=== PATIENT | female | born 1990 | race Caucasian/White ===

== ENCOUNTER 2024-09-08 18:28 | Emergency (ER) | payer OTHER, SELFPAY ==
[2024-09-08 18:38] VITALS: BP 152/96
--- NOTE | 2024-09-08 19:21 | ED.GENMED ---
History of Present Illness
General
Chief Complaint: Dizziness
Source: patient
Exam Limitations: none
Time Seen by Provider: 09/08/24 19:08
History of Present Illness
History of Present Illness:
See MDM
Past History
Past History
ED Past Medical History: None
ED Past Surgical History: Appendectomy
Social History
Tobacco: Non-smoker
Alcohol: None
Drug: None
Phy Exam
Physical Exam
Physical Exam:
See MDM
Course
Orders/Labs/Results
Orders:
Orders
09/08/24 18:31
ECG [Electrocardiogram (*1)] Urgent
Reason for Study: Vertigo / Dizzy
09/08/24 18:32
EKG- Treatment ONCE
09/08/24 19:20
Meclizine [Antivert] 25 mg PO NOW STA
Ondansetron Orally Disint [Zofran Odt (Orally Disintegrating)] 4 mg PO NOW STA
09/08/24 20:20
Diazepam [Valium] 2 mg PO NOW STA
Vital Signs
Initial and Last Documented VS:
Initial Vital Signs
Temp Pulse Resp BP Pulse Ox
97.8 F 91 16 152/96 100
09/08/24 18:38 09/08/24 18:38 09/08/24 18:38 09/08/24 18:38 09/08/24 18:38
Last Documented Vital Signs
Temp Pulse Resp BP Pulse Ox
97.8 F 91 16 152/96 98
09/08/24 18:38 09/08/24 18:38 09/08/24 18:38 09/08/24 18:38 09/08/24 20:00
MDM/Problems Addressed
Differential Diagnosis Includes:
HPI and MDM Narrative:
34-year-old female presenting for evaluation of dizziness. Patient states she sees the room spinning. It is intermittent in nature. It occurred suddenly. It is worse with certain head movements. She does acknowledge that this feels very similar
to a prior episode where she was diagnosed with vertigo. On exam, she does have mild horizontal fatigable nystagmus to the right. Positive Leena-Hallpike to the right. No cerebellar signs. TMs clear. Will give meclizine and Zofran and continue to
monitor. Given reproducible dizziness with no neurodeficits, we discussed low yield for CT head. Patient acknowledges and agrees
Physical exam
General: Well appearing and non-toxic
HEENT: protecting airway. Pupils equal reactive. EOMI. Mild fatigable horizontal nystagmus to the right
Neck: appears supple
CV: No evidence of cyanosis
Resp: No accessory muscle use
Abd: Non-distended
Extremities: No deformities
Neuro: alert. Normal finger-nose bilaterally
Psych: Normal affect
Skin: Intact
Problems Addressed including Acute and Chronic Conditions affecting care:
1. Vertigo
Acuity: acute
Prognosis: stable
Details: Exam and symptoms consistent with BPPV. Will give meclizine and continue to monitor
Updates
8:20 PM on reassessment after meclizine, patient feeling much better but still somewhat symptomatic. Will give small dose of Valium
9:20 PM patient feeling much better and feels comfortable going home
Differential Diagnosis (but not limited to): Vertigo, labyrinthitis, M�ni�re's disease
Testing considered: CT head
Drug therapy (if applicable): OTC meds, please see d/c instruction regarding Rx drugs
Amount and/or Complexity of Data Reviewed
Clinical info obtained from: Patient
External data reviewed: N/A
Labs I independently reviewed (but not limited to): N/A
Radiology: N/A
Pulse Ox: not hypoxic
EKG independently reviewed: sinus rhythm, normal axis, no STEMI
Sheet Metal Worker Maintenance: N/A
Critical Care: N/A
Risk of Complication:
Social Determinants of health: Good social support
Discussed with other providers: N/A
Escalation of Care includes Admit/Obs: After being observed in the Emergency Department, pt stable for discharge.
Occasional wrong word or 'sound a like' substitutions may have occurred due to the inherent limitations of voice recognition software. Read the chart carefully and recognize, using context, where substitutions have occurred.
*Critical Care Note
Total Time (30-74mins, 75-104mins- exclusive of procedures): Not Applicable
ED Attending Note
-
Portions of this chart may have been created with voice recognition software.� Occasional wrong word or��sound alike� substitutions may have occurred due to the inherent limitations of voice recognition software.
Discharge Plan
Departure
Patient Disposition: Home (Routine Discharge)
Date of Disposition: 09/08/24
Time of Disposition: 21:21
Patient with high blood pressure during this ER visit?: Yes
Discharge Problem:
Vertigo
Instructions: Vertigo (a Type of Dizziness) (DC), BLOOD PRESSURE
Prescriptions:
New
diazepam [Valium] 5 mg tablet
2.5 mg PO BID PRN (Reason: vertigo) Qty: 5 0RF
meclizine [Antivert] 25 mg Tablet,Chewable
25 mg PO BIDPRN PRN (Reason: nausea or vertigo) Qty: 10 0RF
No Action
sulfamethoxazole-trimethoprim 1 TABLET tablet
1 tab PO BID Qty: 9 0RF
Referrals:
Reilly Miranda MD [Family Provider] -
Activity Restrictions/Additional Instructions:
Please return for any worsening symptoms.
You may return at any time if you have further concerns.
Please follow up with your doctor at the first available appointment, preferably this week.
I prescribed both meclizine and Valium. Please take the meclizine first. If symptoms are persistent, you can then take half tablet of the Valium.
Thank you for choosing [facility].
Interventions
Interventions:
*Risk Screen - Suicide Last Done: 09/08/24 18:38
*General Assessment Last Done: 09/08/24 19:32
*Neglect/Abuse Screening Last Done: 09/08/24 18:38
*ED- Fall Risk Assessment Last Done: 09/08/24 19:32
*ED COVID-19 Vaccine History Last Done: 09/08/24 19:32
ED- Neurological Assessment Last Done: 09/08/24 19:32
ED Swallowing Screen Last Done: 09/08/24 19:36
Discharge Date and Time
Print Language: GREENLANDIC
[2024-09-08] MEDS: ZOFRAN ODT (ORALLY DISINTEGRATING) 4 MG PO (19:30)
[2024-09-08] MEDS: ANTIVERT 25 MG PO (19:30)
[2024-09-08 19:32] VITALS: BMI 28.8
[2024-09-08] MEDS: VALIUM 2 MG PO (20:32)
== END 2024-09-08 22:16 | disposition home or self-care (01) ==
LOC: EMR 18:28
PROVIDERS: EMERGENCY PHYSICIAN Student in an Organized Health Care Education/Training Program; FAMILY PHYSICIAN Internal Medicine
DX: R42 Dizziness and giddiness (principal); Z90.49 Acquired absence of other specified parts of digestive tract
CPT/HCPCS: 99283; 93005